=== PATIENT | male | born 1965 | race Caucasian/White ===

== ENCOUNTER 2025-02-19 19:16 | Emergency (ER) | payer OTHER ==
[~2025-02-19] VITALS: Ht 177.8 cm; Wt 84.5 kg
[2025-02-19] MEDS: ONDANSETRON HCL 4MG/2ML INJ IV ONE (20:52)
[2025-02-19 21:40] VITALS: O2SAT 99
[2025-02-19] MEDS: PROPOFOL 200MG/20ML VIAL IV ONE (21:42)
[2025-02-19 21:59] VITALS: O2SAT 99
[2025-02-19] MEDS ORDERED: IBUP-2030 MT (23:44)
[2025-02-19] MEDS ORDERED: ACET-2708 MT (23:44)
[2025-02-20 00:30] VITALS: BP 156/77; PULSE 65; RESP 16; TEMP 37.2; O2SAT 98
== END 2025-02-20 00:32 | disposition home or self-care (01) ==
LOC: ER 19:16
DX: S52.591A Other fractures of lower end of right radius, initial encounter for closed fracture (principal); I10 Essential (primary) hypertension; R05.1 Acute cough; W18.30XA Fall on same level, unspecified, initial encounter; Y93.71 Activity, boxing; Y92.89 Other specified places as the place of occurrence of the external cause; Y99.8 Other external cause status
CPT/HCPCS: 73100; 73110; 93005; 94070; 25605; 96374; 99152; 99291; J2405; J2704; Z7610 ×4; A6449; A4565; A4606